=== PATIENT | female | born 1995 | race Caucasian/White ===

== ENCOUNTER → 2017-06-01 | Outpatient (CLI) | payer MEDICAID | LOC: LAB 11:26 | PROVIDERS: ATTEND Emergency Medicine | DX: N39.0 Urinary tract infection, site not specified (principal); R30.0 Dysuria | CPT/HCPCS: 87086; 87088; 87186 ==

== ENCOUNTER 2019-04-06 17:09 | Emergency (ER) | payer SELFPAY ==
[2019-04-06] MEDS ORDERED: NORMAL SALINE 1000 ML 1,000 ML IV ONE ×2 (18:36→22:49)
[2019-04-06] MEDS ORDERED: ONDANSETRON 4 MG TAB.RAPDIS PO ONE (18:36)
--- NOTE | 2019-04-06 18:37 | ER Document Report ---
ED Medical Screen (RME) - General Chief Complaint: Abdominal Pain Stated Complaint: ABDOMINAL PAIN Time Seen by Provider: 04/06/19 18:31 Primary Care Provider: BENITA VARGAS MD [Primary Care Provider] - Follow up as needed Information source: Patient Notes: Patient presents with right lower quadrant pain and right flank pain that started today. Patient reports nausea and diarrhea. No fever or vomiting. Patient is currently on her menstrual cycle. Patient reports a decrease in appetite. I have greeted and performed a rapid initial assessment of this patient. A comprehensive ED assessment and evaluation of the patient, analysis of test results and completion of the medical decision making process will be conducted by additional ED providers. TRAVEL OUTSIDE OF THE [place] IN LAST 30 DAYS: No - Related Data Allergies/Adverse Reactions: No Known Allergies Allergy (Verified 04/06/19 18:30) Past Medical History - Social History Frequency of alcohol use: Occasional Drug Abuse: Marijuana Physical Exam - Vital signs Vitals: Temp Pulse Resp BP Pulse Ox 98.8 F 104 H 14 125/78 98 04/06/19 17:26 04/06/19 17:26 04/06/19 17:26 04/06/19 17:26 04/06/19 17:26 - Abdominal Tenderness: Tender - Right lower pelvic tenderness Course - Vital Signs Vital signs: Temp Pulse Resp BP Pulse Ox 98.8 F 104 H 14 125/78 98 04/06/19 17:26 04/06/19 17:26 04/06/19 17:26 04/06/19 17:26 04/06/19 17:26 Doctor's Discharge - Discharge Referrals: BENITA VARGAS MD [Primary Care Provider] - Follow up as needed
[2019-04-06 20:23] LABS: APPEARANCE,URINE CLEAR; BILIRUBIN,URINE NEGATIVE (NEGATIVE); COLOR,URINE YELLOW; GLUCOSE, URINE NEGATIVE (NEGATIVE); KETONES,URINE NEGATIVE (NEGATIVE); LEUKOCYTE ESTERASE,URINE NEGATIVE (NEGATIVE); NITRITE,URINE NEGATIVE (NEGATIVE); PROTEIN,URINE NEGATIVE (NEGATIVE); URINE SPECIFIC GRAVITY 1.017
[2019-04-06 20:56] LABS: ABSOLUTE LYMPHOCYTES (AUTO) 1.6 10^3/uL (0.5-4.7); ABSOLUTE MONOCYTES (AUTO) 0.5 10^3/uL (0.1-1.4); ABSOLUTE NEUT (AUTO) 5.6 10^3/uL (1.7-8.2); BASOPHILS % (AUTO) 0.5 % (0-2); EOSINOPHILS % (AUTO) 0.2 % (0-6); HEMATOCRIT 42.3 % (36.0-47.0); HEMOGLOBIN 14.5 g/dL (12.0-15.5); LYMPHOCYTES % (AUTO) 20.4 % (13-45); MEAN CORPUSCULAR HEMOGLOBIN 29.2 pg (27.0-33.4); MEAN CORPUSCULAR HGB CONC 34.4 g/dL (32.0-36.0); MEAN CORPUSCULAR VOLUME 85 fl (80-97); MONOCYTES % (AUTO) 6.6 % (3-13); PLATELET COUNT 205 10^3/uL (150-450); RED BLOOD COUNT 4.97 10^6/uL (3.72-5.28); RED CELL DISTRIBUTION WIDTH 12.9 % (11.5-14.0); SEGMENTED NEUTROPHILS % (AUTO) 72.3 % (42-78); TOTAL CELLS COUNTED % (AUTO) 100 %; WHITE BLOOD COUNT 7.8 10^3/uL (4.0-10.5)
[2019-04-06 21:16] LABS: ALKALINE PHOSPHATASE 54 U/L (38-126); ANION GAP 11 (5-19); ASPARTATE AMINO TRANSFERASE 19 U/L (14-36); BILIRUBIN,DIRECT 0.1 mg/dL (0.0-0.4); BILIRUBIN,TOTAL 1.7 mg/dL (0.2-1.3); BLOOD UREA NITROGEN 8 mg/dL (7-20); CALCIUM 9.5 mg/dL (8.4-10.2); CARBON DIOXIDE 26 mmol/L (22-30); CHLORIDE 105 mmol/L (98-107); GLUCOSE 98 mg/dL (75-110); POTASSIUM 4.2 mmol/L (3.6-5.0); TOTAL PROTEIN 8.4 g/dL (6.3-8.2)
[2019-04-06] MEDS ORDERED: ONDANSETRON 4 MG TAB.RAPDIS ONE (22:00)
[2019-04-06 22:25] LABS: CHLAM PCR NOT DETECTED (NOT DETECT)
--- NOTE | 2019-04-07 00:14 | RADIOLOGY REPORT (SQ) ---
CT ABDOMEN PELVIS WITHOUT IV CONTRAST EXAM DATE: 04/06/2019 10:38 PM [employer] HISTORY: Right-sided abdominal pain. COMPARISON: None. TECHNIQUE: CT scan of the abdomen and pelvis was performed without IV contrast. This exam was performed according to our departmental dose-optimization program, which includes automated exposure control, adjustment of the mA and/or kV according to patient size and/or use of iterative reconstruction technique. FINDINGS: The lung bases are clear. No pleural or pericardial effusions. The gallbladder is contracted, limiting evaluation. Liver, spleen, pancreas, adrenal glands, kidneys, and pelvic organs are unremarkable. No hydronephrosis or urinary stones are seen. No small bowel obstruction. No evidence of appendicitis. No evidence of acute diverticulitis. No adenopathy, free fluid, or free air is identified. The aorta is normal caliber. The osseous structures are intact. IMPRESSION: No acute abdominal or pelvic findings.
--- NOTE | 2019-04-07 00:47 | ER Document Report ---
Entered by ROLANDO GOFF SCRIBE 04/06/19 5417 Acting as scribe for:ELIJAH ODOM MD ED General - General Chief Complaint: Abdominal Pain Stated Complaint: ABDOMINAL PAIN Time Seen by Provider: 04/06/19 18:31 Primary Care Provider: BENITA VARGAS MD [ACTIVE STAFF] - Follow up as needed Information source: Patient, Parent Notes: 24-year-old female presents to the emergency department with her mother complaining of abdominal pain that comes and goes since yesterday. Patient stated that she thought pain was associated with menstrual cycle but is worse t hen normal. Patient describes the RUQ pain as sharp and radiated down to groin. Patient denies fever and chills. TRAVEL OUTSIDE OF THE [place] IN LAST 30 DAYS: No - Related Data Allergies/Adverse Reactions: No Known Allergies Allergy (Verified 04/06/19 18:30) Past Medical History - General Information source: Patient - Social History Smoking Status: Former Smoker Cigarette use (# per day): No Chew tobacco use (# tins/day): No Frequency of alcohol use: Occasional Drug Abuse: Marijuana Lives with: Family Family History: Reviewed & Not Pertinent Patient has suicidal ideation: No Patient has homicidal ideation: No Psychiatric Medical History: Reports: Hx Anxiety, Hx Bipolar Disorder, Hx Depression Surgical Hx: Negative Review of Systems - Review of Systems Constitutional: See HPI. denies: Chills, Fever EENT: No symptoms reported Cardiovascular: No symptoms reported Respiratory: No symptoms reported Gastrointestinal: See HPI, Abdominal pain Genitourinary: No symptoms reported Female Genitourinary: Last menstrual period - 04/05/2019 Musculoskeletal: No symptoms reported Skin: No symptoms reported Hematologic/Lymphatic: No symptoms reported Neurological/Psychological: No symptoms reported -: Yes All other systems reviewed and negative Physical Exam - Vital signs Vitals: Temp Pulse Resp BP Pulse Ox 98.8 F 104 H 14 125/78 98 04/06/19 17:26 04/06/19 17:26 04/06/19 17:26 04/06/19 17:26 04/06/19 17:26 - Notes Notes: Physical Exam: General: Alert, appears well. HEENT: Normocephalic. Atraumatic. PERRL. Extraocular movements intact. Oropharynx clear. Neck: Supple. Non-tender. Respiratory: No respiratory distress. Clear and equal breath sounds bilaterally. Cardiovascular: Regular rate and rhythm. Abdominal: RUQ and RLQ tenderness to palpation. No distension. Normal Bowel So unds. Back: No gross abnormalities. Extremities: Moves all four extremities. Upper extremities: Normal inspection. Normal ROM. Lower extremities: Normal inspection. No edema. Normal ROM. Neurological: Normal cognition. AAOx4. Normal speech. Psychological: Normal affect. Normal Mood. Skin: Warm. Dry. Normal color. Course - Re-evaluation Re-evalutation: 04/07/19 00:44 No evidence of any obstruction. Patient sitting up comfortably in the room able to stand up and walk as well. Explained the patient CT scan of her abdomen and pelvis did not disclose any organ failure any obstruction any appendicitis or any other inflammatory disease process. - Vital Signs Vital signs: Temp Pulse Resp BP Pulse Ox 98.5 F 72 18 112/56 L 100 04/06/19 22:01 04/06/19 22:01 04/06/19 22:01 04/06/19 22:01 04/06/19 22:01 - Laboratory Result Diagrams: 04/06/19 20:43 04/06/19 20:43 Laboratory results interpreted by me: 04/06/19 04/06/19 19:41 20:43 Creatinine 0.46 L Total Bilirubin 1.7 H Total Protein 8.4 H Urine Blood MODERATE H Urine Urobilinogen 2.0 H - Diagnostic Test Radiology reviewed: Image reviewed, Reports reviewed Radiology results interpreted by me: 04/07/19 00:[address] scan of abdomen and pelvis without contrast did not disclose any inflammatory disease or obstruction. Discharge - Discharge Clinical Impression: Dysmenorrhea Condition: Stable Disposition: HOME, SELF-CARE Instructions: Dysmenorrhea ([facility]) Additional Instructions: Menorrhagia You are having severe bleeding from the uterus. We call this menorrhagia. It is most often caused by a hormone imbalance. The lining of the uterus grows t oo thick, then comes sloughs off with severe bleeding. There's often cramping and passage of clots. Sometimes menorrhagia is caused by benign muscle tumors in the uterus, called fibroids. There's no evidence of miscarriage or tubal . Menorrhagia often has no clear cause. But it's especially common at times when the normal menstrual cycle is disturbed -- whether by recent , use of hormones, or impending menopause. Some medical problems, such as obesity, stress, or thyroid problems make menorrhagia more likely. In many cases, the menstrual cycle will return to normal without treatment. Antiinflammatory pain medicine, like ibuprofen, can decrease cramping. Where the bleeding is significant, high-dose estrogen will usually stop the bleeding within a day of two. A cycle or two of hormones ( control pills) can help restore the uterus to normal. In some patients where bleeding is severe or resistant to treatment, a D&C is required. A endometrial biopsy (a sample of the inside of the uterus) may be recommended for some older women. This would be done by a gynecology specialist. Treatment for anemia may be required if bleeding is severe. You should rest and avoid intercourse until the bleeding is controlled. Call the doctor or return for re-examination if you feel faint, have increasing pain, or have a major increase in the amount of bleeding. Your right lower quadrant abdominal and flank pain is most likely related to your menstrual cycle. I do recommend that you take ibuprofen as needed for pain. There is no evidence of any other source based on the CT scan. Forms: Return to Work Referrals: BENITA VARGAS MD [ACTIVE STAFF] - Follow up as needed I personally performed the services described in the documentation, reviewed and edited the documentation which was dictated to the scribe in my presence, and it accurately records my words and actions.
[2019-04-07 05:05] VITALS: BP 118/63
== END 2019-04-07 01:10 | disposition home or self-care (01) ==
LOC: ER 17:09
DX: N94.6 Dysmenorrhea, unspecified (principal); R10.11 Right upper quadrant pain; R10.811 Right upper quadrant abdominal tenderness; R10.813 Right lower quadrant abdominal tenderness; F12.10 Cannabis abuse, uncomplicated; Z87.891 Personal history of nicotine dependence
CPT/HCPCS: 36415; 83690; 84703; 85025; 80053; 81001; 87491; 87591; 74176; S0119; 99284